=== PATIENT | male | born 1945 | race Caucasian/White ===

== ENCOUNTER 2020-11-07 10:37 | Inpatient (IN) ==
[2020-11-07] MEDS ORDERED: *HR* FentaNYL (PF) 100 MCG/2 ML VIAL IVP ONE ×2 (11:06→12:29)
[2020-11-07] MEDS ORDERED: Ondansetron 4 MG/2 ML VIAL IVP ONE (11:06)
[2020-11-07 12:06] LABS: Calcium 9.8 mg/dL (8.6-10.3); Potassium 4.5 mEq/L (3.5-5.1)
[2020-11-07] MEDS ORDERED: Ondansetron 4 MG/2 ML VIAL IVP PRN (12:50)
[2020-11-07] MEDS ORDERED: Acetaminophen 325 MG TABLET PO PRN (12:50)
[2020-11-07] MEDS ORDERED: Naloxone 0.4 MG/ML INJ IVP PRN (12:50)
[2020-11-07] MEDS ORDERED: D5% in Water 1,000 ML IVC PRN (12:52)
[2020-11-07] MEDS ORDERED: *HR* Dextrose 50 % in Water (Vial) 50 ML VIAL IVP PRN (12:52)
[2020-11-07] MEDS ORDERED: Dextrose Gel 15 GM/37.5 ML TUBE PO PRN ×2 (12:52)
[2020-11-07 13:28] LABS: Basophils % 0.3 %; Eosinophils # 0.3 K/mcL (0.0-0.6); Eosinophils % 3.2 %; Hemoglobin 14.9 g/dL (12.9-16.9); Immature Granulocytes % 0.5 % (0-4); Lymphocytes # 1.4 K/mcL (0.6-4.6); Lymphocytes % 14.1 %; Mean Corpuscular HGB Conc 33.1 g/dL (31.6-35.5); Mean Corpuscular Hemoglobin 34.3 pg (28.0-33.3); Mean Corpuscular Volume 103.4 fL (83.0-100.0); Monocytes # 0.8 K/mcL (0.0-1.3); Monocytes % 7.6 %; Neutrophils # 7.4 K/mcL (1.6-8.9); Platelet Count 320 K/mcL (140-400); Red Blood Count 4.35 M/mcL (4.19-5.50); Red Cell Distribution Width 13.6 % (11.5-14.5); Segmented Neutrophils % 74.3 %
[2020-11-07 16:31] LABS: Estimated Average Glucose 203 mg/dl; Hemoglobin A1C 8.7 %
[2020-11-07] MEDS: *HR* Heparin 5,000 UNIT/ML VIAL SQ SCH (17:31)
[2020-11-07] MEDS: Insulin LISPRO 300 UNITS/3 ML VIAL SUBQ SCH (17:31)
[2020-11-07] MEDS: *HR* HYDROcodone/Acet 5/325 mg TABLET PO PRN (21:06)
[2020-11-07] MEDS: Venlafaxine XR (24 HR) 75 MG CAP.ER.24H PO SCH (21:06)
[2020-11-07] MEDS: Gabapentin 100 MG CAPSULE PO SCH (21:06)
[2020-11-07] MEDS: Insulin DETEMIR 100 UNIT/ML X5UNITS SUBQ SCH (21:06)
[2020-11-08] MEDS: *HR* OxyCODONE Immed Rel 5 MG TABLET PO PRN (02:46)
[2020-11-08 03:02] LABS: Basophils % 0.4 %; Eosinophils # 0.6 K/mcL (0.0-0.6); Eosinophils % 7.8 %; Hematocrit 42.2 % (37.5-50.1); Hemoglobin 13.8 g/dL (12.9-16.9); Immature Granulocytes % 0.5 % (0-4); Lymphocytes # 2.2 K/mcL (0.6-4.6); Mean Corpuscular HGB Conc 32.7 g/dL (31.6-35.5); Mean Corpuscular Hemoglobin 33.3 pg (28.0-33.3); Mean Corpuscular Volume 101.9 fL (83.0-100.0); Mean Platelet Volume 8.8 fL (9.4-12.4); Monocytes # 0.8 K/mcL (0.0-1.3); Monocytes % 9.7 %; Neutrophils # 4.5 K/mcL (1.6-8.9); Platelet Count 308 K/mcL (140-400); Red Blood Count 4.14 M/mcL (4.19-5.50); Red Cell Distribution Width 13.6 % (11.5-14.5); Segmented Neutrophils % 54.6 %; White Blood Count 8.2 K/mcL (4.3-11.1)
[2020-11-08 03:18] LABS: Calcium 9.3 mg/dL (8.6-10.3); Magnesium 2.2 mg/dL (1.6-2.6); Potassium 3.9 mEq/L (3.5-5.1)
[2020-11-08] MEDS: *HR* HYDROcodone/Acet 5/325 mg TABLET PO PRN ×2 (04:11→21:07)
[2020-11-08] MEDS: *HR* Heparin 5,000 UNIT/ML VIAL SQ SCH ×2 (06:18→17:27)
[2020-11-08] MEDS ORDERED: *HR* FentaNYL (PF) 100 MCG/2 ML VIAL IVP PRN (09:55)
[2020-11-08] MEDS ORDERED: Ondansetron 4 MG/2 ML VIAL IVP PRN (09:55)
[2020-11-08] MEDS ORDERED: *HR* HYDROmorphone PF 0.5 MG/0.5 ML SYRINGE IVP PRN (09:55)
[2020-11-08] MEDS ORDERED: *HR* FentaNYL (PF) 100 MCG/2 ML VIAL ONE (10:18)
[2020-11-08] MEDS ORDERED: Lidocaine HCL 4 ML Topical Solution (Laryng-O-Jet Kit Sterile Pak) TP ONE (10:18)
[2020-11-08] MEDS ORDERED: *HR* Succinylcholine 200 MG/10 ML VIAL IVP ONE (10:18)
[2020-11-08] MEDS ORDERED: *HR* Propofol 200 MG/20 ML VIAL IVP ONE (10:18)
[2020-11-08] MEDS ORDERED: Ondansetron 4 MG/2 ML VIAL ONE (10:18)
[2020-11-08] MEDS ORDERED: Lidocaine -MPF 2% 2 ML VIAL ONE (10:18)
[2020-11-08] MEDS: Insulin LISPRO 300 UNITS/3 ML VIAL SUBQ SCH ×3 (11:58→17:33)
[2020-11-08] MEDS: Gabapentin 100 MG CAPSULE PO SCH ×3 (12:06→21:08)
[2020-11-08] MEDS: Aspirin 81 MG TAB.CHEW PO SCH (12:06)
[2020-11-08] MEDS: Venlafaxine XR (24 HR) 150 MG CAP.ER.24H PO SCH (12:06)
[2020-11-08] MEDS: Carbidopa/Levodopa 25/100 TABLET PO SCH ×2 (17:25→21:06)
[2020-11-08] MEDS ORDERED: *HR* Rocuronium Bromide 50 MG/5 ML VIAL ONE ×2 (19:25→19:26)
[2020-11-08] MEDS: Venlafaxine XR (24 HR) 75 MG CAP.ER.24H PO SCH (21:07)
[2020-11-08] MEDS: Insulin DETEMIR 100 UNIT/ML X5UNITS SUBQ SCH (22:55)
[2020-11-09] MEDS: Carbidopa/Levodopa 25/100 TABLET PO SCH ×3 (01:17→12:40)
[2020-11-09] MEDS: *HR* Heparin 5,000 UNIT/ML VIAL SQ SCH (05:47)
[2020-11-09] MEDS: Insulin LISPRO 300 UNITS/3 ML VIAL SUBQ SCH ×2 (08:49→12:43)
[2020-11-09] MEDS: Venlafaxine XR (24 HR) 150 MG CAP.ER.24H PO SCH (08:49)
[2020-11-09] MEDS: Aspirin 81 MG TAB.CHEW PO SCH (08:49)
[2020-11-09] MEDS: *HR* OxyCODONE Immed Rel 5 MG TABLET PO PRN (08:52)
[2020-11-09 11:10] VITALS: TEMP 97.4
[2020-11-09 11:16] LABS: Calcium 9.2 mg/dL (8.6-10.3); Magnesium 2.2 mg/dL (1.6-2.6)
[2020-11-09] MEDS ORDERED: traZODone 50 MG TABLET PO PRN (11:21)
[2020-11-09] MEDS ORDERED: Sennosides/Docusate Sodium TABLET PO PRN (11:21)
[2020-11-09] MEDS ORDERED: methocarbamoL 500 MG TABLET PO PRN (11:21)
[2020-11-09] MEDS ORDERED: Simethicone 80 MG TAB.CHEW PO PRN (11:21)
[2020-11-09] MEDS ORDERED: *HR* LORazepam 0.5 MG TABLET PO PRN (11:21)
[2020-11-09] MEDS ORDERED: *HR* OxyCODONE Immed Rel 5 MG TABLET PO PRN (11:25)
[2020-11-09] MEDS ORDERED: Finasteride 5 MG TABLET PO SCH (18:00)
[2020-11-09] MEDS ORDERED: Melatonin 3 MG TABLET PO SCH (21:00)
[2020-11-09] MEDS ORDERED: Insulin DETEMIR 100 UNIT/ML X5UNITS SUBQ SCH (21:00)
[2020-11-10 07:04] VITALS: BP 119/70; PULSE 87; O2SAT 96
== END 2020-11-09 16:08 | disposition other institution (70) | DRG 563 ==
LOC: EMEROOARM 10:37 → 3ANU 10:37 → SUATTDRO 14:39
PROVIDERS: ADMIT Student in an Organized Health Care Education/Training Program; ATTEND Internal Medicine